=== PATIENT | female | born 1950 | race American Indian/Alaskan Native ===

== ENCOUNTER 2018-09-24 23:50 | Emergency (ER) | payer MEDICARE ==
[2018-09-25 00:14] VITALS: BP 147/81
[2018-09-25] MEDS ORDERED: SOLU-Medrol IM STA (03:06)
--- NOTE | 2018-09-25 03:26 | Emergency Department Report ---
ED Back Pain/Injury HPI - General Chief Complaint: Back Pain/Injury Stated Complaint: LOWER BACK PAIN Time Seen by Provider: 09/25/18 02:45 Source: patient Limitations: No Limitations - History of Present Illness Initial Comments: 68-year-old -[place] female with chronic low back pain since emergency department complaining of a flareup. States she has chronic sciatica and was sleeping on a floor for the last 3 days which cause a flareup of her low back pain and now the pain is sharp in the low back and radiating down her left leg. She specifically seeks a sterile injection here at the emergency department to be sent home with symptoms medications as well. Pupils no loss of bowel or bladder, no saddle paresthesia, no hematuria, fever, chills, sweats, chest pain, palpitations. MD Complaint: back pain -: Gradual Similar Symptoms Previously: No Place: home Radiation: none Severity: mild Quality: dull Consistency: constant Improves With: none Worsens With: none Associated Symptoms: denies: weakness, numbness, difficulty walking, cough, incontinence, fever/chills, headaches, abdominal pain, nausea/vomiting, rash, seizure, shortness of breath, syncope - Related Data Previous Rx's Medication Instructions Recorded Last Taken Type Humidifier [Cool Mist Humidifier] 1 each MC DAILY #1 device 06/30/18 Unknown Rx Meloxicam 15 mg PO DAILY #10 tablet 09/25/18 Unknown Rx Methocarbamol [Robaxin] 750 mg PO Q8H PRN #21 tablet 09/25/18 Unknown Rx Allergies Allergy/AdvReac Type Severity Reaction Status Date / Time No Known Allergies Allergy Unverified 06/30/18 12:17 ED Review of Systems ROS: Stated complaint: LOWER BACK PAIN Other details as noted in HPI Constitutional: denies: chills, fever Eyes: denies: eye pain, eye discharge, vision change ENT: denies: ear pain, throat pain Respiratory: denies: cough, shortness of breath, wheezing Cardiovascular: denies: chest pain, palpitations Endocrine: no symptoms reported. denies: flushing, intolerance to cold Gastrointestinal: denies: abdominal pain, nausea, diarrhea Genitourinary: denies: urgency, dysuria, discharge Musculoskeletal: back pain. denies: joint swelling, arthralgia Skin: denies: rash, lesions Neurological: denies: headache, weakness, paresthesias Psychiatric: denies: anxiety, depression Hematological/Lymphatic: denies: easy bleeding, easy bruising ED Past Medical Hx - Past Medical History Hx Hypertension: Yes Additional medical history: SCIATICA - Surgical History Additional Surgical History: Ovaries removed (2005) - Social History Smoking Status: Former Smoker Substance Use Type: None - Medications Home Medications: Home Medications Medication Instructions Recorded Confirmed Last Taken Type Humidifier [Cool Mist Humidifier] 1 each MC DAILY #1 device 06/30/18 Unknown Rx Meloxicam 15 mg PO DAILY #10 tablet 09/25/18 Unknown Rx Methocarbamol [Robaxin] 750 mg PO Q8H PRN #21 tablet 09/25/18 Unknown Rx ED Physical Exam - General Limitations: No Limitations General appearance: alert, in no apparent distress - Head Head exam: Present: atraumatic, normocephalic - Eye Eye exam: Present: normal appearance, EOMI - ENT ENT exam: Present: normal exam, mucous membranes moist - Neck Neck exam: Present: normal inspection - Respiratory Respiratory exam: Present: normal lung sounds bilaterally. Absent: respiratory distress - Cardiovascular Cardiovascular Exam: Present: regular rate, normal rhythm. Absent: systolic murmur, diastolic murmur, rubs, gallop - GI/Abdominal GI/Abdominal exam: Present: soft, normal bowel sounds - Extremities Exam Extremities exam: Present: normal inspection, full ROM, normal capillary refill - Back Exam Back exam: Present: normal inspection, tenderness, paraspinal tenderness, other (negative straight leg raise. Negative Pam's test. Patient is on ambulatory). Absent: CVA tenderness (R), CVA tenderness (L) - Neurological Exam Neurological exam: Present: alert, oriented X3, CN II-XII intact, normal gait - Psychiatric Psychiatric exam: Present: normal affect, normal mood - Skin Skin exam: Present: warm, dry, intact, normal color. Absent: rash ED Course Vital Signs 09/25/18 00:10 Temperature 98.3 F Pulse Rate 71 Respiratory 18 Rate Blood Pressure 147/81 O2 Sat by Pulse 97 Oximetry Critical care attestation.: If time is entered above; I have spent that time in minutes in the direct care of this critically ill patient, excluding procedure time. ED Disposition Clinical Impression: Lumbago of lumbar region with sciatica Disposition: TO HOME OR SELFCARE Is pt being admited?: No Does the pt Need Aspirin: No Condition: Stable Instructions: Lumbar Radiculopathy (ED) Referrals: ANTHONY CRAIG MD [Primary Care Provider] - 3-5 Days
== END 2018-09-25 03:30 | disposition home or self-care (01) ==
LOC: ED 23:50
DX: M54.40 Lumbago with sciatica, unspecified side (principal); G89.29 Other chronic pain; I10 Essential (primary) hypertension; Z87.891 Personal history of nicotine dependence
CPT/HCPCS: 96372; 99282; J2930

== ENCOUNTER 2019-02-09 20:06 | Emergency (ER) | payer MEDICARE ==
--- NOTE | 2019-02-09 21:18 | Event Note ---
ED Screening Note ED Screening Note: low back pain pain rad to lle hx sciatica no fall or trauma no dysuria/hematuria or spotting pmh htn sciatica menopausal ambulatory to ER rx 3 bp meds-- off them cig etoh no DM This initial assessment/diagnostic orders/clinical plan/treatment(s) is/are subject to change based on patients health status, clinical progression and re- assessment by fellow clinical providers in the ED. Further treatment and workup at subsequent clinical providers discretion. Patient/guardian urged not to elope from the ED as their condition may be serious if not clinically assessed and managed. Initial orders include: tx for sciatica in ACC
[2019-02-09] MEDS ORDERED: DECADRON IM ONE (21:40)
[2019-02-09] MEDS ORDERED: FLEXERIL PO ONE (21:40)
[2019-02-10] MEDS ORDERED: DECADRON ONE (02:32)
[2019-02-10] MEDS ORDERED: FLEXERIL ONE (02:33)
--- NOTE | 2019-02-10 02:52 | Emergency Department Report ---
ED Back Pain/Injury HPI - General Chief Complaint: Back Pain/Injury Stated Complaint: BACK/FOOT PAIN Time Seen by Provider: 02/09/19 21:15 Source: patient Limitations: No Limitations - History of Present Illness Initial Comments: Patient is a 68-year-old [place]oc[place] female who is presenting with low back pain radiating into the left leg and left buttock. Patient states the leg has a pins and needle sensation. Patient states the lower back pain is achy 6 out of 10 in severity. She has no bowel or bladder dysfunction. Patient denies any trauma or falls. Patient is afebrile. - Related Data Previous Rx's Medication Instructions Recorded Last Taken Type Humidifier [Cool Mist Humidifier] 1 each MC DAILY #1 device 06/30/18 Unknown Rx Meloxicam 15 mg PO DAILY #10 tablet 09/25/18 Unknown Rx methOCARBAMOL [Robaxin] 750 mg PO Q8H PRN #21 tablet 09/25/18 Unknown Rx Ibuprofen [Motrin 600 MG tab] 600 mg PO Q8H PRN #20 tablet 02/10/19 Unknown Rx methOCARBAMOL [Robaxin TAB] 500 mg PO Q6H PRN #14 tablet 02/10/19 Unknown Rx traMADol [Ultram] 50 mg PO Q6HR PRN #12 tablet 02/10/19 Unknown Rx Allergies Allergy/AdvReac Type Severity Reaction Status Date / Time No Known Allergies Allergy Unverified 06/30/18 12:17 ED Review of Systems ROS: Stated complaint: BACK/FOOT PAIN Other details as noted in HPI Comment: All other systems reviewed and negative ED Past Medical Hx - Past Medical History SCIATICA ED Back Pain Physical Exam - Exam General: Vital signs noted. No distress. Alert and acting appropriately. Back/Abdomen: Yes Perilumbar Tenderness, No Abdominal Tenderness, No Perithoracic Tenderness, No Sacroiliac Tenderness, No Flank Tenderness, No Straight Leg Raise Pain Neuro: Yes Normal Sensation, Yes Normal DTR's, Yes Normal Gait, No Motor Weakness ED Course Vital Signs 02/09/19 02/09/19 20:27 21:15 Temperature 98.9 F 98.9 F Pulse Rate 69 69 Respiratory 16 16 Rate Blood Pressure 174/78 174/78 O2 Sat by Pulse 96 95 Oximetry ED Medical Decision Making - Medical Decision Making Patient to be treated for sciatica be discharged home. Critical care attestation.: If time is entered above; I have spent that time in minutes in the direct care of this critically ill patient, excluding procedure time. ED Disposition Clinical Impression: Sciatica Qualifiers: Laterality: left Qualified Code(s): M54.32 - Sciatica, left side Disposition: TO HOME OR SELFCARE Is pt being admited?: No Does the pt Need Aspirin: No Condition: Stable Instructions: Lumbar Radiculopathy (ED) Referrals: OSORIO GONCALVES MD [Primary Care Provider] - 3-5 Days Time of Disposition: 02:51
[2019-02-10 03:17] VITALS: BP 151/70
== END 2019-02-10 03:16 | disposition home or self-care (01) ==
LOC: ED 20:06
DX: M54.32 Sciatica, left side (principal)
CPT/HCPCS: 96372; 99282; J1100

== ENCOUNTER 2022-02-22 15:25 | Emergency (ER) | payer MEDICARE ==
[2022-02-22 15:32] VITALS: BP 149/76
== END 2022-02-23 01:11 | disposition left against medical advice (07) ==
LOC: ED 15:25
DX: Z01.00 Encounter for examination of eyes and vision without abnormal findings (principal); Z53.21 Procedure and treatment not carried out due to patient leaving prior to being seen by health care provider